=== PATIENT | male | born 2005 | race Two or more races ===

== ENCOUNTER 2024-02-27 17:43 | Emergency (ER) | payer OTHER ==
[~2024-02-27] VITALS: Ht 167.6 cm; Wt 68.0 kg
[2024-02-27] MEDS ORDERED: DEXAMETHASONE SODIUM PHOSP/PF 10 MG/ML VIAL IJ STA (18:27)
[2024-02-27] MEDS ORDERED: ORPHENADRINE CITRATE 30 MG/ML AMPUL IM STA (18:39)
== END 2024-02-27 19:32 | disposition home or self-care (01) ==
LOC: ER 17:44 → EMR PED 17:59 → ER 17:59 → EMR PED 19:32
DX: M79.18 Myalgia, other site (principal)